=== PATIENT | male | born 2005 | race Caucasian/White ===

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

== ENCOUNTER 2024-04-29 09:32 | Emergency (ER) | payer SELFPAY ==
[2024-04-29 09:40] VITALS: BP 138/92; PULSE 79; RESP 20; O2SAT 100
--- NOTE | 2024-04-29 09:58 | ED.SKABFB ---
HPI - Skin/Abscess/Foreign Bdy General Chief complaint: Skin/Abscess/Foreign Body Stated complaint: Rash Source: patient Mode of arrival: ambulatory Limitations: no limitations History of Present Illness HPI narrative: 18 y/o male presented for c/o itchy red rash to groin/thighs for about 2 weeks, and started with swelling to penis 2 days ago. Has tried no treatment for symptoms. Denies urinary symptoms. Denies concern for STD. Related Data Allergies Allergy/AdvReac Type Severity Reaction Status Date / Time No Known Allergies Allergy Unverified 01/24/22 17:10 Review of Systems Review of Systems: CONSTITUTIONAL: Denies body aches, fever, chills, or sweats. EYES: Denies visual changes, redness, or discharge. ENT: Denies rhinorrhea, congestion CARDIOVASCULAR: Denies chest pain, palpitations, or edema. RESPIRATORY: Denies cough or dyspnea. GASTROINTESTINAL: Denies abdominal pain, nausea, vomiting, or diarrhea. SKIN: per HPI MUSCULOSKELETAL: Denies back pain, joint pain, or myalgia. NEUROLOGIC: Denies headache, numbness, tingling, or weakness. [facility] Past Medical History Medical History No significant medical problems Social History Social History Smoking status: Never smoker Comments At time of signature, I have reviewed and agree with nursing past medical, surgical, social and family history unless otherwise noted. Please see nursing chart for further information. There is no relevant family history pertinent to the presenting complaint Exam Narrative: GENERAL: Well-appearing EYES: conjunctivae clear, and EOMI. ENT: Mucous membranes moist. Oropharynx without edema, erythema or lesions. NECK: Supple. No lymphadenopathy CHEST: Clear to auscultation. HEART: Regular rate and rhythm. SKIN: Warm, dry. bilateral groin extending to thighs and екатерина area with erythematous demarcated area consistent with tinea cruris, no active drainage, minimally tender. Shaft of penis mildly swollen, minimal erythema. no drainage or lesions. NEURO: Alert and oriented x3. Course Course Emergency Course: Patient is aware of diagnosis, understands and agrees to treatment plan. Anticipatory guidance given. Patient agrees to follow-up as directed and is aware of reasons to seek care at the emergency department. Portions of this record may have been created with voice recognition software Level of Care: Express Care Visit Vital Signs Vital signs: Vital Signs Pulse Rate 79 04/29/24 09:40 Respiratory Rate 20 04/29/24 09:40 Blood Pressure 138/92 H 04/29/24 09:40 Pulse Oximetry 100 04/29/24 09:40 Oxygen Delivery Room Air 04/29/24 09:40 Pulse Rate 79 04/29/24 09:40 Respiratory Rate 20 04/29/24 09:40 Blood Pressure 138/92 H 04/29/24 09:40 Pulse Oximetry 100 04/29/24 09:40 Oxygen Delivery Room Air 04/29/24 09:40 Reviewed MDM - Skin/Abscess/Foreign Bdy MDM Narrative Medical decision making narrative: Discussed physical exam findings. Advised supportive measures and signs/symptoms to go to the ER. Pt is appropriate for outpt treatment and f/u. Instructed patient to go to nearest ER immediately for any worsening symptoms including but not limited to: fever, spreading rash, pain, sore throat, headache, dizziness, chest pain, trouble breathing, or any symptoms concerning to the patient. Differential Diagnosis Differential diagnosis: Likely abscess of skin or subcutaneous tissue, urticaria, herpes zoster, cellulitis and contact dermatitis Discharge Plan Discharge Clinical Impression: Tinea cruris Patient Disposition: Home, Self-Care Condition: Stable Instructions: Skin Yeast Infection (ED) Additional Instructions: use the cream as directed use antifungal powder such as Desenex keep the skin dry, recommend changing clothes frequently to prevent moisture con
== END 2024-04-29 10:15 | disposition home or self-care (01) ==
PROVIDERS: Emergency Provider Nurse Practitioner Family
DX: B35.6 Tinea cruris (principal)
CPT/HCPCS: 99213; G0463